=== PATIENT | male | born 1960 | race Caucasian/White ===

== ENCOUNTER 2017-07-16 12:07 | Emergency (ER) | payer BC ==
[2017-07-16 12:25] VITALS: BP 122/73
--- NOTE | 2017-07-16 13:00 | UC ---
Throat Pain/Nasal Scott HPI - HPI Summary HPI Summary: Tomi sinus pressure for about two weeks. No fever. Mild cough. NO prior chronic sinus disease. - History of Current Complaint Chief Complaint: UCRespiratory Stated Complaint: SINUS COMPLIANT Time Seen by Provider: 07/16/17 12:50 Hx Obtained From: Patient Onset/Duration: Gradual Onset, Lasting Weeks Severity: Moderate Cough: Nonproductive Associated Signs & Symptoms: Positive: Sinus Discomfort, Nasal Discharge. Negative: Dysphagia, FB Sensation, Drooling, Vomiting, Rash - Allergies/Home Medications Allergies/Adverse Reactions: Allergies Allergy/AdvReac Type Severity Reaction Status Date / Time No Known Allergies Allergy Verified 07/16/17 12:25 PMH/Surg Hx/FS Hx/Imm Hx Previously Healthy: Yes - Surgical History Surgical History: Yes Surgery Procedure, Year, and Place: 02/03 - LAMINECTOMY - LUMBAR. 08/10 - LAMINECTOMY - Family History Known Family History: Positive: None - Social History Lives: With Family Alcohol Use: Occasionally Substance Use Type: None Smoking Status (MU): Never Smoked Tobacco Review of Systems ENT: Sinus Congestion All Other Systems Reviewed And Are Negative: Yes Physical Exam Triage Information Reviewed: Yes Appearance: Well-Appearing, No Pain Distress, Well-Nourished Vital Signs: Initial Vital Signs Temp 98 F 07/16/17 12:18 Pulse 80 07/16/17 12:18 Resp 14 07/16/17 12:18 BP 122/73 07/16/17 12:18 Pulse Ox 99 07/16/17 12:18 Vital Signs Reviewed: Yes Eyes: Positive: Conjunctiva Clear ENT: Positive: Pharynx normal, TM bulging, Sinus tenderness. Negative: Pharyngeal erythema, Nasal congestion, Nasal drainage, Tonsillar swelling, Tonsillar exudate, Trismus, Muffled voice, Hoarse voice Neck exam: Normal Neck: Positive: Supple, Nontender, No Lymphadenopathy Respiratory: Positive: Chest non-tender, Lungs clear, Normal breath sounds, No respiratory distress, No accessory muscle use Cardiovascular: Positive: RRR, No Murmur, Pulses Normal, Brisk Capillary Refill Abdomen Description: Positive: Nontender, No Organomegaly, Soft. Negative: Distended, Guarding Musculoskeletal: Positive: Strength Intact, ROM Intact, No Edema Neurological: Positive: Alert, Muscle Tone Normal. Negative: Fatigued Skin: Negative: rashes Throat Pain/Nasal Course/Dx - Differential Dx/Diagnosis Provider Diagnoses: sinusitis Discharge - Discharge Plan Condition: Good Disposition: HOME Prescriptions: Amoxicillin PO (*) [Amoxicillin 500 MG CAP*] 500 mg PO TID #30 cap Patient Education Materials: Sinusitis (ED) Referrals: Josef Thibodeaux DO [Primary Care Provider] - If Needed
== END 2017-07-16 13:01 | disposition home or self-care (01) ==
LOC: UCCORT 12:07
DX: J32.9 Chronic sinusitis, unspecified (principal)
CPT/HCPCS: 99212; G0463

== ENCOUNTER 2018-01-10 21:07 | Emergency (ER) | payer BC ==
[2018-01-10 21:21] VITALS: BP 133/84
[2018-01-10] MEDS ORDERED: diPHENhydraMINE PO* 50 MG PO ONE (21:35)
[2018-01-10] MEDS ORDERED: predniSONE TAB* 20 MG PO ONE (21:35)
[2018-01-10] MEDS ORDERED: Triamcinolone Acetonide* 40 MG/ML 1 ML VIAL IM ONE (21:36)
--- NOTE | 2018-01-10 21:37 | UC ---
Skin Complaint HPI - HPI Summary HPI Summary: 57 YO MALE WITH THE ONSET OF RASH THAT STARTED YESTERDAY WAS WORKING IN [place] EARLY THIS WEEK - History of Current Complaint Chief Complaint: UCRash Time Seen by Provider: 01/10/18 21:25 Stated Complaint: RASH Hx Obtained From: Patient Onset/Duration: Gradual Onset, Lasting Days Timing: Constant Onset Severity: Mild Current Severity: Mild Pain Intensity: 0 Pain Scale Used: 0-10 Numeric Location: Other - SCALP/NECK/FACE/CHEST/ARMS/BACK Character: Pruritus, Redness, Raised Aggravating Factor(s): Nothing Alleviating Factor(s): Nothing Associated Signs & Symptoms: Positive: Rash - Allergy/Home Medications Allergies/Adverse Reactions: Allergies Allergy/AdvReac Type Severity Reaction Status Date / Time No Known Allergies Allergy Verified 01/10/18 21:21 Home Medications: Home Medications NK [No Home Medications Reported] 01/10/18 [History Confirmed 01/10/18] Review of Systems Constitutional: Negative Skin: Rash Eyes: Negative ENT: Negative Respiratory: Negative Cardiovascular: Negative Gastrointestinal: Negative Genitourinary: Negative Motor: Negative Neurovascular: Negative Musculoskeletal: Negative Neurological: Negative Psychological: Negative Is Patient Immunocompromised?: No All Other Systems Reviewed And Are Negative: Yes PMH/Surg Hx/FS Hx/Imm Hx Previously Healthy: Yes - Surgical History Surgical History: Yes Surgery Procedure, Year, and Place: 02/03 - LAMINECTOMY - LUMBAR. 08/10 - LAMINECTOMY - Family History Known Family History: Positive: Hypertension - Social History Alcohol Use: Occasionally Substance Use Type: None Smoking Status (MU): Never Smoked Tobacco Physical Exam Triage Information Reviewed: Yes Appearance: Well-Appearing, No Pain Distress, Well-Nourished Vital Signs: Initial Vital Signs Temp 97.7 F 01/10/18 21:17 Pulse 54 01/10/18 21:17 Resp 17 01/10/18 21:17 BP 133/84 01/10/18 21:17 Pulse Ox 100 01/10/18 21:17 Eye Exam: Normal Dental Exam: Normal Neck exam: Normal Neck: Positive: Supple, Nontender Respiratory: Positive: Lungs clear, Normal breath sounds, No respiratory distress Cardiovascular: Positive: RRR Musculoskeletal: Positive: ROM Intact, No Edema Neurological: Positive: Alert Psychological Exam: Normal Skin Exam: Other - PAPULES/SOME IN LINEAR ARRAY/SOME COALESED ON CHEST AND SCALP Skin: Positive: rashes Course/Dx - Diagnoses Provider Diagnoses: CONTACT DERMATITIS Discharge - Sign-Out/Discharge Documenting (check all that apply): Discharge/Admit/Transfer - Discharge Plan Condition: Stable Disposition: HOME Patient Education Materials: Contact Dermatitis (ED) Referrals: Brennen De La Fuente DO [Primary Care Provider] - 5 Days (if not improved) Additional Instructions: benadryl 25 mg 2 pills 4x day as needed for itching WILL CAUSE DROWSINESS DON'T TAKE AND DRIVE - Billing Disposition and Condition Condition: STABLE Disposition: HOME
== END 2018-01-10 21:59 | disposition home or self-care (01) ==
LOC: UCCORT 21:07
DX: L25.9 Unspecified contact dermatitis, unspecified cause (principal)
CPT/HCPCS: 96372; 99212; A9270-GY; G0463; J3301; J7512

== ENCOUNTER 2019-08-19 13:54 | Emergency (ER) | payer BC ==
[2019-08-19 14:04] VITALS: BP 128/86
--- NOTE | 2019-08-19 14:33 | ED ---
Respiratory - HPI Summary HPI Summary: 59 yr old male with the complaint of coughing. Onset of symptoms 10 days ago. His cough is not productive. He has not had fever, chills. He has not had runny nose or sinus congestion. He has not had sore throat. His cough has been persistent. The patient has not had any shortness of breath. He denies pain in chest with coughing. He exercises regularly on treadmill and bike and has no change in exercise tolerance. He came in because he is going to see his one month old grandson later this week. The patient has symptoms that are mild. It does not affect his sleep at all. He is able to rest comfortably. He states he is healthy, and has no medical problems at all. He denies smoking and he does not take any medications. - History of Current Complaint Chief Complaint: UCRespiratory Stated Complaint: COUGH/BILLIE Time Seen by Provider: 08/19/19 14:05 Pain Intensity: 0 - Allergy/Home Medications Allergies/Adverse Reactions: Allergies Allergy/AdvReac Type Severity Reaction Status Date / Time No Known Allergies Allergy Verified 08/19/19 14:02 PMH/Surg Hx/FS Hx/Imm Hx Endocrine/Hematology History: Denies: Hx Diabetes Cardiovascular History: Denies: Hx Hypertension, Hx Pacemaker/ICD History: Denies: Hx Renal Disease Musculoskeletal History: Denies: Hx Rheumatoid Arthritis, Hx Osteoporosis Sensory History: Denies: Hx Hearing Aid Psychiatric History: Denies: Hx Panic Disorder - Surgical History Surgery Procedure, Year, and Place: 02/03 - LAMINECTOMY - LUMBAR. 08/10 - LAMINECTOMY Infectious Disease History: No Infectious Disease History: Denies: Traveled Outside the [place] in Last 30 Days - Family History Known Family History: Positive: None, Hypertension - Social History Occupation: Employed Full-time Lives: With Family Alcohol Use: Occasionally Substance Use Type: Reports: None Smoking Status (MU): Never Smoked Tobacco Review of Systems Constitutional: Negative Positive: Cough All Other Systems Reviewed And Are Negative: Yes Physical Exam Triage Information Reviewed: Yes Vital Signs On Initial Exam: Initial Vitals Temp Pulse Resp BP Pulse Ox 98.1 F 66 14 128/86 99 08/19/19 14:01 08/19/19 14:01 08/19/19 14:01 08/19/19 14:01 08/19/19 14:01 Vital Signs Reviewed: Yes Appearance: Positive: Well-Appearing, No Pain Distress Skin: Positive: Warm, Skin Color Reflects Adequate Perfusion Head/Face: Positive: Normal Head/Face Inspection Eyes: Positive: EOMI, ADDY ENT: Positive: Normal ENT inspection Neck: Positive: Nontender Respiratory/Lung Sounds: Positive: Clear to Auscultation, Breath Sounds Present. Negative: Stridor, Wheezes Cardiovascular: Positive: RRR. Negative: Murmur Abdomen Description: Negative: Distended Musculoskeletal: Positive: Strength/ROM Intact Neurological: Positive: Sensory/Motor Intact, Alert, Oriented to Person Place, Time, CN Intact II-III, Normal Gait, Speech Normal Diagnostics - Vital Signs Vital Signs Temp Pulse Resp BP Pulse Ox 08/19/19 14:01 98.1 F 66 14 128/86 99 - Laboratory Lab Statement: Any lab studies that have been ordered have been reviewed, and results considered in the medical decision making process. - Radiology chest mon[facility] jose lat Radiology Interpretation Completed By: Radiologist - nad Disposition - Course Course Of Treatment: 59 yr old with coughing. His symptoms are mild and he is very comfortable in appearance. Chest xray neg. Dc home. FU with PMD. - Diagnoses Provider Diagnoses: Cough Discharge ED - Sign-Out/Discharge Documenting (check all that apply): Patient Departure All imaging exams completed and their final reports reviewed: Yes - Discharge Plan Condition: Good Disposition: HOME Patient Education Materials: Upper Respiratory Infection (ED) Referrals: Brennen De La Fuente DO [Primary Care Provider] - 4 Days - Billing Disposition and Condition Condition: GOOD Disposition: Home
== END 2019-08-19 14:45 | disposition home or self-care (01) ==
LOC: UCCORT 13:54
DX: R05 Cough (principal)
CPT/HCPCS: 71046; 99211; G0463